=== PATIENT | female | born 1975 | race Hispanic/Latino ===

== ENCOUNTER 2018-01-06 14:16 | Emergency (ER) | payer OTHER ==
[2018-01-06] MEDS ORDERED: HYDROCODONE/ACETAMINOPHEN 10/325 MG TAB ONE (14:50)
[2018-01-06] MEDS ORDERED: KETOROLAC TROMETHAMINE 60 MG/2 ML VIAL ONE (14:50)
[2018-01-28] MEDS ORDERED: LISI40TA4 PO (11:18)
[2018-01-28] MEDS ORDERED: ACET1TAB25 PO (11:18)
[2018-01-28] MEDS ORDERED: HYDR25TA PO (11:18)
[2018-01-28] MEDS ORDERED: METF500T6 PO (11:18)
[2018-01-28] MEDS ORDERED: METO-409 PO (11:18)
[2018-01-28] MEDS ORDERED: DEXA1TAB PO (11:18)
[2018-01-28] MEDS ORDERED: CLON0.1T PO (11:18)
[2018-01-28] MEDS ORDERED: GABA-531 PO (11:18)
== END 2018-01-06 15:53 | disposition home or self-care (01) ==
LOC: EDH 14:16
DX: M54.16 Radiculopathy, lumbar region (principal); I10 Essential (primary) hypertension; E11.9 Type 2 diabetes mellitus without complications; Z72.0 Tobacco use
CPT/HCPCS: 96372; 99283; J1885

== ENCOUNTER 2025-04-12 18:36 | Inpatient (IN) | payer OTHER ==
[~2025-04-12] VITALS: Ht 165.1 cm; Wt 95.2 kg
[~2025-04-12 18:36] MED LIST: ACET-2079 PO; CLON0.1T PO; DEXA1TAB PO; GABA-531 PO; HYDR25TA PO; LISI40TA15 PO; METF-444 PO; METO-409 PO
[2025-04-12 18:57] LABS: IMMATURE GRANULOCYTE ABSOLUTE 0.07 K/uL (0-1); NUCLEATED RED BLOOD CELLS 0.0 % (0.0-0.19); PLATELET COUNT (AUTO) 421 K/uL (130-400); RED BLOOD CELL COUNT(AUTO) 4.78 MIL/uL (4.00-5.50); RED CELL DISTRIBUTION WIDTH 13.3 % (11.0-15.5); WHITE BLOOD COUNT (AUTO) 16.9 K/uL (4.8-10.8)
--- NOTE | 2025-04-12 18:58 | EKG ---
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
[2025-04-12] MEDS: 0.9%NACL 1000ML 1,000 ML IV ONE (19:09)
--- NOTE | 2025-04-12 19:12 | EKG ---
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
[2025-04-12 19:16] LABS: INR 1.0 (0.85-1.15)
[2025-04-12 19:20] LABS: GLUCOSE,RANDOM 264.0 mg/dL (70-105); SODIUM SERUM 137.0 mmol/L (136-145); UREA NITROGEN, BLOOD 15.0 mg/dL (7-18)
[2025-04-12 19:21] LABS: CREATINE KINASE, TOTAL 99.0 U/L (21-232); CREATININE 1.2 mg/dL (0.5-1.0); GLOMERULAR FILTR. RATE CALC 55.0 mL/min (>90)
--- NOTE | 2025-04-12 19:27 | ERN ---
ED Note History of Present Illness Stated Complaint: CHEST PAIN Chief Complaint: Chest Pain Time Seen by MD: 19:14 Dictation: 7:00 p.m. Patient was signed out to me by a.mWhit physician This is a 49-year-old obese female presenting to the emergency room with complaints of chest discomfort with radiation to the jaw and to the neck 40 minutes prior to the presentation. She also reported palpitations and tachycardia. She just did not feel well. No syncope, no fever chills or rigors no nausea vomitings diarrhea. No history of any KS in the past. She stated that she did have palpitations and tachycardia in the past but never to this extent where she felt bad. Temperature 98.3 pulse 190s blood pressure 79/54 respiratory rate 16 pulse oximetry 99% on room air Her chronic medical problems include diabetes mellitus, hypertension, hyperlipidemia and history of tachycardia details are unknown She also reported that she has been on GLP 1 agents for about a year initially on Mounjaro currently on Ozempic. Allergies: Coded Allergies: No Known Allergies (Unverified Allergy, Unknown, 01/28/18) Home Meds Reported Medications Metformin HCl (Metformin HCl) 500 Mg Tablet, 500 MG PO DAILY, TAB 01/28/18 Hydrochlorothiazide (Hydrochlorothiazide) 25 Mg Tablet, 25 MG PO DAILY, TAB 01/28/18 Dexamethasone (Dexamethasone) 1 Mg Tablet, 1 MG PO BID, TAB 01/28/18 Metoprolol Succinate (Metoprolol Succinate) 100 Mg Tab.er.24h, 100 MG PO DAILY, TAB 01/28/18 Clonidine HCl (Clonidine HCl) 0.1 Mg Tablet, 0.1 MG PO BID, TAB 01/28/18 Lisinopril (Lisinopril) 40 Mg Tablet, 40 MG PO DAILY, TAB 01/28/18 Acetaminophen with Codeine (Acetaminophen-Cod #3 Tablet) 1 Each Tablet, 1 EACH PO Q2IUMOW PRN for PAIN, TAB 01/28/18 Gabapentin (Gabapentin) 300 Mg Capsule, 300 MG PO BID, CAP 01/28/18 Past Medical History Past Medical History: Diabetes-Type II, High Cholesterol, Hypertension Additional Past Medical Hx: TACHYCARDIA Surgical History: Cholecystectomy, Surgical History Other: BACK SURGERY Family History: Negative Social History: Smokers (Vaping) RN Note Reviewed/Agreed w/PFSH: Yes Review of System Dictation Constitutional: Negative for fever,chills, and weight loss Eyes: Negative for injury, pain,redness, and discharge ENT: Negative for injury,pain or swelling Cardiovascular: Positive for chest pain, palpitations, and denied edema Respiratory: Negative for shortness of breath, cough, and wheezing, Abdomen/GI: Negative for abdominal pain, nausea, vomiting, diarrhea, and constipation Back: Negative for injury and pain : Negative for injury, bleeding and discharge MS/Extremity: Negative for injury and deformity Skin: Negative for rash, and discoloration Neuro: Negative for headache, weakness, numbness, tingling, and seizure Psych: Negative for suicide ideation, homicidal ideation, and hallucinations Initial Vital Sign VS Vital Signs Date Time Temp Pulse Resp B/P (MAP) Pulse Ox O2 Delivery O2 Flow Rate FiO2 04/12/25 18:37 98.2 190 16 79/54 99 Room Air 04/12/25 18:55 0 21 Physical Exam Dictation General: awake, alert, NAD obese female conversational Head/Face: Normocephalic, atraumatic Eyes: PERRL, EOMI, vision at baseline ENT: oral cavity clear, TMs clear, no signs of infection Neck: Trachea midline, supple, no nuchal rigidity Cardiovascular: Tachycardia, No MRGs, no JVD Respiratory: CTAB, no respiratory distress, No rales or wheezes Abdomen: Soft, non-tender, non-distended, normal bowel sounds, no guarding or rebound. Skin: Warm, dry, normal turgor, no rash MS/Extremity: Pulses equal, no cyanosis, neurovascular intact, FROM small lesions look like healing insect bite Neuro: COAx4, GCS 15, strength 5/5, CN 2-12 intact, normal cerebellar exam, normal gait, Psych: Normal behavior, mood, and affect normal Extremities-trace edema without any palpable cords, Homans sign is negative Results (Laboratory/Radiology) Laboratory/Radiology Laboratory Tests Test 04/12/25 18:46 04/12/25 20:02 White Blood Count 16.9 K/uL (4.8-10.8) H Red Blood Count 4.78 MIL/uL (4.00-5.50) Hemoglobin 13.9 g/dL (12.0-16.0) Hematocrit 41.4 % (36-48) Mean Corpuscular Volume 86.6 fL (79-99) Mean Corpuscular Hemoglobin 29.1 pg (27.0-33.0) Mean Corpuscular Hemoglobin Concent 33.6 g/dL (32.0-36.0) Red Cell Distribution Width 13.3 % (11.0-15.5) Platelet Count 421 K/uL (130-400) H Mean Platelet Volume 10.8 fL (7.5-10.5) H Immature Granulocyte % (Auto) 0.4 % (0-1) Neutrophils (%) (Auto) 57.9 % (40.0-77.0) Lymphocytes (%) (Auto) 34.7 % (21.0-51.0) Monocytes (%) (Auto) 6.3 % (3.0-13.0) Eosinophils (%) (Auto) 0.4 % (0.0-8.0) Basophils (%) (Auto) 0.3 % (0.0-5.0) Neutrophils # (Auto) 9.8 K/uL (1.8-7.7) H Lymphocytes # (Auto) 5.9 K/uL (1.0-4.8) H Monocytes # (Auto) 1.1 K/uL (0.1-1.0) H Eosinophils # (Auto) 0.07 K/uL (0.00-0.70) Basophils # (Auto) 0.05 K/uL (0.00-0.20) Absolute Immature Granulocyte (auto 0.07 K/uL (0-1) Nucleated Red Blood Cells 0.0 % (0.0-0.19) Prothrombin Time 10.6 SEC (9.6-11.6) Prothromb Time International Ratio 1.00 (0.85-1.15) Activated Partial Thromboplast Time 28.4 SEC (26.3-35.5) Sodium Level 137 mmol/L (136-145) Potassium Level 3.0 mmol/L (3.5-5.1) *L Chloride Level 98 mmol/L (101-111) L Carbon Dioxide Level 24 mmol/L (21-32) Blood Urea Nitrogen 15 mg/dL (7-18) Creatinine 1.2 mg/dL (0.5-1.0) H Glomerular Filtration Rate Calc 55 mL/min (>90) Random Glucose 264 mg/dL (70-105) H Total Calcium 9.2 mg/dL (8.5-10.1) Magnesium Level 1.90 mg/dL (1.80-2.40) Total Creatine Kinase 99 U/L (21-232) Troponin I High Sensitivity 8 ng/L (4-50) Thyroid Stimulating Hormone (TSH) 6.32 uIU/mL (0.36-3.74) H Free Triiodothyronine (T3) pg/mL 2.85 pg/mL (2.18-3.98) Urine Color LIGHT-YELLOW (YELLOW) Urine Appearance CLOUDY (CLEAR) H Urine pH 7.0 (5.0-8.0) Urine Specific [place] 1.007 (1.001-1.031) Urine Protein 30 mg/dL (NEGATIVE) H Urine Glucose (UA) 200 mg/dL (NEGATIVE) H Urine Ketones NEGATIVE mg/dL (NEGATIVE) Urine Occult Blood +- (TRACE) (NEGATIVE) H Urine Nitrate NEGATIVE (NEGATIVE) Urine Bilirubin NEGATIVE mg/dL (NEGATIVE) Urine Urobilinogen 0.2 mg/dL (0.2-1.0) Urine Leukocyte Esterase NEGATIVE [place]/uL Urine RBC 2-5 /HPF (0-1) H Urine WBC 6-10 /HPF (0-1) H Urine Squamous Epithelial Cells FEW /HPF (0-2) Urine Bacteria MOD /HPF (None Seen) Labs Reviewed?: Yes EKG Comment: 12 lead EKG done on 04/12/2025 at 6:40 p.m. showed a heart rate of 193, ND interval 115, QRS duration 86, QT/QTC 271/485. Impression supraventricular tachycardia with repolarization abnormalities but no acute ST-T T elevations noted. EKG rhythm strip SVT. Repeat 12 lead EKG on 04/12/2025 at 6:54 p.m. after a dose of Lopressor showed a heart rate of 165, ND interval 46, QRS 94, QT/QTC 322/534. Impression sinus tachycardia with repolarization abnormalities slightly prolonged QT nonspecific changes. EKG rhythm strip shows sinus tachycardia around 160s. Repeat 12 lead EKG done on 04/12/2025 at 7:07 p.m. showed a heart rate of 94, ND interval 207, QRS 93, QT/QTC 389/488 Impression normal sinus rhythm with slightly prolonged ND. EKGs interpreted by ER MD Dr. Orona X-RAY Comment: REASON: cp ORDERING PHYSICIAN: FREDY CHARLES MD PROCEDURE: CXR1VW - CHEST 1VW EXAM: CR Chest, 1 View. CLINICAL HISTORY: cp COMPARISON: None provided. FINDINGS: LUNGS: There is no mass, infiltrate, or acute pulmonary abnormality. PLEURAL SPACES: No evidence of pleural effusion or pneumothorax. MEDIASTINUM: The cardiomediastinal silhouette is within normal limits. BONES: No aggressive appearing osseous lesion seen. IMPRESSION: No acute cardiopulmonary pathology is evident. /[place] DICTATED BY: OLIVA PALOMARES Jr., MD DATE: 04/12/252099 ELECTRONICALLY SIGNED BY: OLIVA PALOMARES Jr., MD DATE: 04/12/252099 ED Course ED Course Orders Procedure Category Date Status Time Cbc With Differential LAB 04/12/25 In Process 18:39 Prothrombin Time With LAB 04/12/25 Complete INR 18:39 Chest 1vw RAD 04/12/25 Resulted 18:39 12 Lead Ekg Tracing- EKG 04/12/25 Complete Technical 18:39 0.9%Nacl 1000ml (Ns PHA 04/12/25 Complete 1000ml) 19:00 Magnesium LAB 04/12/25 Complete 18:39 Creatine Kinase, Total LAB 04/12/25 Complete 18:39 Troponin I High LAB 04/12/25 Complete Sensitivity 18:39 Urinalysis Profile LAB 04/12/25 Complete 18:39 Partial LAB 04/12/25 Complete Thromboplastin Time 18:39 Basic Metabolic Panel LAB 04/12/25 Complete 18:39 Metoprolol Tartrate PHA 04/12/25 Complete (Lopressor) 19:00 Metoprolol Tartrate PHA 04/12/25 Complete (Lopressor) 18:47 Metoprolol Tartrate PHA 04/12/25 Complete (Lopressor) 19:00 Metoprolol Tartrate PHA 04/12/25 Complete (Lopressor) 18:51 Thyroid Stimulating LAB 04/12/25 Complete Hormone 19:00 Free T3 LAB 04/12/25 Complete 19:00 12 Lead Ekg Tracing- EKG 04/12/25 Complete Technical 18:59 Diltiazem 25mg Inj PHA 04/12/25 Complete (Cardizem 25mg Inj) 19:08 Diltiazem 25mg Inj PHA 04/12/25 Complete (Cardizem 25mg Inj) 19:10 12 Lead Ekg Tracing- EKG 04/12/25 Logged Technical 19:34 Potassium Bicarb/Cit PHA 04/12/25 Complete Ac 25meq (K-Lyte Ta 20:30 Magnesium 2gm Premix PHA 04/12/25 In Process 50ml (Magnesium 2gm 20:30 Culture Urine HEATH 04/12/25 In Process 20:20 Current Medications Medications (Trade) Dose Ordered Sig/Sherlyn Route PRN Reason Start Time Stop Time Status Last Admin Dose Admin Diltiazem HCl (CARDIzem 25MG INJ) 10 mg ONCE ONCE IVP 04/12/25 19:10 04/12/25 19:16 DC 04/12/25 19:38 Diltiazem HCl (CARDIzem 25MG INJ) 25 mg STK-MED ONCE IVP 04/12/25 19:08 04/12/25 19:08 DC Magnesium Sulfate 50 ml @ 0 mls/hr PROTOCOL IV 04/12/25 20:30 05/12/25 20:29 04/12/25 20:20 Metoprolol Tartrate (loprESSOR) 5 mg ONCE ONCE IV 04/12/25 19:00 04/12/25 18:54 DC Metoprolol Tartrate (loprESSOR) 5 mg ONCE ONCE IV 04/12/25 19:00 04/12/25 19:01 DC Metoprolol Tartrate (loprESSOR) 5 mg STK-MED ONCE IV 04/12/25 18:47 04/12/25 18:47 DC Metoprolol Tartrate (loprESSOR) 5 mg STK-MED ONCE IV 04/12/25 18:51 04/12/25 18:52 DC Potassium Bicarbonate (K-Lyte Tablet Eff 25 Meq Tablet.eff) 50 meq ONCE ONCE PO 04/12/25 20:30 04/12/25 20:31 DC 04/12/25 20:21 Sodium Chloride 1,000 ml @ 0 mls/hr ONCE ONCE IV 04/12/25 19:00 04/12/25 19:01 DC 04/12/25 19:09 Vital Signs Date Time Temp Pulse Resp B/P (MAP) Pulse Ox O2 Delivery O2 Flow Rate FiO2 04/12/25 20:01 98.1 95 20 99/65 96 Nasal Cannula* 2 28 04/12/25 19:38 166 78/69 04/12/25 19:21 91 16 90/60 100 Nasal Cannula* 2 28 04/12/25 19:19 99.0 192 20 124/89 97 Nasal Cannula* 2 28 04/12/25 19:12 99 92/51 04/12/25 19:06 98.2 166 20 76/32 99 Nasal Cannula* 2 28 04/12/25 18:55 98.6 192 20 124/89 97 Room Air* 0 21 04/12/25 18:37 98.2 190 16 79/54 99 Room Air We will perform diagnostic labs, advanced imaging and administer medications according to the patient's complaint. Once the results are available, will review and personally interpreted the labs to rule out any acute life- threatening emergency the trach require immediate intervention and treatment. I will then re-evaluate the patient after treatment and diagnostic exams have return to determine whether the patient requires any further testing, can safely be discharged home or need further admission to hospital for additional treatment and evaluation. 9:00 p.m. patient accepted by for admission and further management HEART Score Response (Comments) Value History: Moderate suspicion (+1) 1 EKG: Repolarization changes 1 Age: 45-65yrs (+1) 1 Risk Factors: 3+ risk factors (+2) 2 Initial Troponin: Normal limit (0) 0 HEART Score Risk: Mod Risk for MACE (4-6) Total 5 Medical Decision Making MDM Differential diagnosis: Unstable angina, cardiac dysrhythmias, sinus tachycardia, thyroid storm, accessory pathways This is a 49-year-old obese female presenting to the emergency room with complaints of chest discomfort with radiation to the jaw and to the neck 40 minutes prior to the presentation. She also reported palpitations and tachy cardia. She just did not feel well. No syncope, no fever chills or rigors no nausea vomitings diarrhea. No history of any KS in the past. She stated that she did have palpitations and tachycardia in the past but never to this extent where she felt bad. Temperature 98.3 pulse 190s blood pressure 79/54 respiratory rate 16 pulse oximetry 99% on room air Her chronic medical problems include diabetes mellitus, hypertension, hyperlipidemia and history of tachycardia details are unknown She also reported that she has been on GLP 1 agents for about a year initially on Mounjaro currently on Ozempic. 7:31 p.m. labs reviewed CBC showed a white count of 16.9 hemoglobin 13.9. 8:45 p.m. TSH 6.3, troponins are negative. BNP 7 showed a potassium of 3 BUN and creatinine are 15 and 1.2 with a glucose of 264 Chest x-ray unremarkable for any acute infiltrate or pulmonary edema Patient responded very well to Cardizem 10 mg bolus with a heart rates of 80s blood pressure in the 90 systolic. I recommended admission to the hospital. Patient and spouse are agreeable 9:00 p.m. patient accepted by covering for Dr. herman for admission and further management. Rationale: Tests considered and ordered secondary to shared decision making include: labs, ECG and radiology Previous outside records reviewed: Old ER visits. Risk of complication and/or morbidity or mortality of patient management: None Medications-Per medication reconciliation Need for hospitalization: Patient does meet criteria for hospitalization. Need for emergency major/minor surgery: No There are no social concerns with this patient. Prescription drug management Prescriptions will include symptomatic care Patient's prior external medical records from other ER visits were reviewed by me as indicated. Prior testing and results from previous visits were reviewed. Prior tests were taken into account with medical decision making and resource utilization, independent historian/historians were used to obtain complete medical history. I independently interpreted the test that were performed, results were reviewed by me and considered findings on radiology if ordered. Medical management and examination interpretation discussions were had by me with other qualified healthcare professionals as indicated for the patient's care. Critical Care Note Critical Time: 45 minutes Comment(s) Life-threatening illness; supraventricular tachycardia, hypotension, chest pain Risk of morbidity mortality-high Complexity of medical decision making-high (X) high probability of sudden clinically significant deterioration in the p atient's condition required the highest level of my preparedness to intervene urgently. I provided critical care services requiring my direct and personal management as noted below; (x) chart data review (x) reviewing nurse's notes and/charts (x) documentation time (x) consultation collaboration on findings and therapy options (x) medication orders and management (x) re-evaluations (x) care, transfer of care, and discharge plans (x) ordering and interpreting studies (x) ordering and reviewing labs (x) obtaining necessary history from family, EMS, senior care, private MD, surrogate decision makers because patient was unable to give history due to limitations in the mental status (x) aggregate critical care time was ( 45 ) minutes. This includes only time during which I was engaged in work directly related to the patient's care as described above whether at the bedside or elsewhere in the ER while the patient was critical. My time did not include minutes spent treating any other patients simultaneously or on activities that did not directly contribute to the patient's treatment. It did not include time spent performing other reported procedures or services of residents if any. Belgica Orona MDFCCP DX & DISP Disposition: Inpatient Decision to Admit Time: 19:24 Departure Impression: Primary Impression: Supraventricular tachycardia Additional Impressions: Chest pain, Hypokalemia, Hypomagnesemia, Diabetes mellitus with hyperglycemia, Hypotension, Elevated TSH Condition: Stable Additional Instructions: Patient was informed of all the diagnostic labs and procedures conducted in the emergency room today and demonstrated understanding of the results. I personally reviewed and interpreted all the diagnostic exams performed in the ER today. The patient will be admitted to the hospital for further treatment and evaluation. Disposition-admit to facility Condition-stable/guarded Course-uncertain at this time Pain status-decreased Assessment-exam unchanged Admission Certification- I certify that the patients status is appropriate and is based on my best clinical judgment and the patient's condition as documented in the medical records Referrals: MONICO HERMAN MD (PCP) BELGICA ORONA MD Apr 12, 2025 19:27
--- NOTE | 2025-04-12 20:00 | HMCIMG ---
EXAM: CR Chest, 1 View. CLINICAL HISTORY: cp COMPARISON: None provided. FINDINGS: LUNGS: There is no mass, infiltrate, or acute pulmonary abnormality. PLEURAL SPACES: No evidence of pleural effusion or pneumothorax. MEDIASTINUM: The cardiomediastinal silhouette is within normal limits. BONES: No aggressive appearing osseous lesion seen. IMPRESSION: No acute cardiopulmonary pathology is evident. /[place]
[2025-04-12 20:16] LABS: APPEARANCE,URINE CLOUDY (CLEAR); GLUCOSE, URINE (UA) 200 mg/dL (NEGATIVE); LEUKOCYTE ESTERASE ,URINE NEGATIVE Leu/uL (NEGATIVE); NITRATE,URINE NEGATIVE (NEGATIVE); OCCULT BLOOD,URINE +- (TRACE) (NEGATIVE)
[2025-04-12 20:18] LABS: ADD UA MICROSCOPIC YES
[2025-04-12 20:20] LABS: SQUAMOUS EPITHELIAL CELL,UR FEW /HPF (0-2)
[2025-04-12] MEDS: MAGNESIUM 2GM PREMIX 50ML 50 ML IV SCH (20:20)
--- NOTE | 2025-04-12 22:12 | NUR ---
CRITICAL LAB VALUE GIVEN TO PRIMARY NURSE GABRIELA STEWARD. TROPONIN - 724
--- NOTE | 2025-04-12 22:26 | EKG ---
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
[2025-04-12] MEDS ORDERED: AMLO-257 PO (22:44)
[2025-04-12] MEDS ORDERED: ROSU5TAB51 PO (22:44)
[2025-04-12] MEDS ORDERED: OLME40TA18 PO (22:44)
[2025-04-12] MEDS ORDERED: SEMA2PEN SQ (22:44)
[2025-04-12] MEDS ORDERED: PIOG15TA66 PO (22:44)
[2025-04-12] MEDS ORDERED: FLUO-341 PO (22:44)
[2025-04-12] MEDS ORDERED: HYDR12.54 PO (22:44)
[2025-04-12] MEDS ORDERED: CLON0.1T PO (22:44)
[2025-04-12] MEDS ORDERED: METO-409 PO (22:44)
--- NOTE | 2025-04-13 04:18 | EKG ---
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
[2025-04-13 05:32] LABS: IMMATURE GRANULOCYTE ABSOLUTE 0.05 K/uL (0-1); NUCLEATED RED BLOOD CELLS 0.0 % (0.0-0.19); PLATELET COUNT (AUTO) 303 K/uL (130-400); RED BLOOD CELL COUNT(AUTO) 3.94 MIL/uL (4.00-5.50); RED CELL DISTRIBUTION WIDTH 13.5 % (11.0-15.5); WHITE BLOOD COUNT (AUTO) 13.4 K/uL (4.8-10.8)
[2025-04-13 05:49] LABS: INR 1.08 (0.85-1.15)
[2025-04-13 06:00] LABS: CREATININE 0.7 mg/dL (0.5-1.0); GLOMERULAR FILTR. RATE CALC 106.0 mL/min (>90); GLUCOSE,RANDOM 131.0 mg/dL (70-105); LDL DIRECT 97.0 mg/dL (0-99); SODIUM SERUM 141.0 mmol/L (136-145); UREA NITROGEN, BLOOD 12.0 mg/dL (7-18)
--- NOTE | 2025-04-13 06:12 | NUR ---
PTT OF 114.9 RESULTED AT THIS TIME, HEPARIN DRIP ON HOLD PER PROTOCOL FOR 60 MINUTES.
[2025-04-13] MEDS ORDERED: PoTASSium chl 10% ELIXIR 20MEQ 20 MEQ/15 ML UDCUP PO PRN (06:30)
--- NOTE | 2025-04-13 06:53 | NUR ---
DR. OSBORNE MADE AWARE OF CARDIOLOGY CONSULT AND LABS, TROPONIN LEVELS
[2025-04-13] MEDS: ASPIRIN 81 MG EC TAB PO SCH (06:58)
[2025-04-13] MEDS: ASPIRIN 81 MG EC TAB ONE (07:01)
--- NOTE | 2025-04-13 07:02 | NUR ---
DR. OSBORNE AT BEDSIDE AT [facility]
--- NOTE | 2025-04-13 07:31 | CONS ---
Cardiology consultation Date of service: April 13, 2025 Reason for consult: Evaluation of elevated troponin Referring MD: Dr. Ann History of present illness 49-year-old female with no prior coronary artery disease but with diabetes hypertension dyslipidemia obesity and smoking. She was doing well until yesterday when she was under a lot of stress from work started experiencing palpitations lightheadedness And chest pains as well as 1 episode of vomiting. She was brought in by family members at the emergency room and an EKG done showed narrow complex tachycardia at 190 beats per minute Highly suggestive of AV jair reentrant tachycardia. IV metoprolol was given with no response. After IV Cardizem was given, She converted back to sinus rhythm. Post conversion EKG done showed sinus rhythm, no ST deviations or Q-waves, normal intervals no delta waves Cardiac troponin was elevated peak 2332. She was given aspirin and started on IV heparin. Past Medical History Past Medical History: Diabetes-Type II, High Cholesterol, Hypertension, Prior history of tachycardia with emergency room visits last 3 years ago unknown details Surgical History: Cholecystectomy, x3, back surgery Family History: Multiple family members having myocardial infarction less than 55 years old Social History: Smokers (Vaping) Review of System Dictation Constitutional: Negative for fever,chills, and weight loss Eyes: Negative for injury, pain,redness, and discharge ENT: Negative for injury,pain or swelling Cardiovascular: Positive for chest pain, palpitations, and denied edema Respiratory: Negative for shortness of breath, cough, and wheezing, Abdomen/GI: Negative for abdominal pain, nausea, + vomiting, no diarrhea, and constipation Back: Negative for injury and pain : Positive for dysuria and foul-smelling urine MS/Extremity: Negative for injury and deformity Skin: Negative for rash, and discoloration Neuro: Negative for headache, weakness, numbness, tingling, and seizure Psych: Negative for suicide ideation, homicidal ideation, and hallucinations Physical examination Overweight female in no acute distress [place] palpebral conjunctivae anicteric sclerae Supple neck no JVD no bruit Symmetrical chest expansion no retractions clear breath sounds Regular rate and rhythm normal S1 and S2 2/6 mitral regurgitation murmur Abdomen soft nontender no hepatosplenomegaly Extremities: Trace pedal edema mildly diminished distal pulses bilaterally Skin: No rashes Neuro exam: Awake alert oriented x3, no motor or sensory deficits Impression: 49-year-old known diabetes hypertension dyslipidemia and vaping with a strong family history Of early myocardial infarction with likely underlying obstructive coronary artery disease who was under a lot of stress yesterday And developed supraventricular tachycardia causing chest pains and palpitations with marked elevated troponin Most likely type 2 NV with high WBC most likely related to a urinary tract infection Diagnosis: 1. Symptomatic paroxysmal supraventricular tachycardia converted with IV Cardizem 2. Type [address]-elevation myocardial infarction 3. Suspected obstructive coronary artery disease 4. Strong family history of early myocardial infarction 5. Diabetes, A1c 6.5 6. Chronic hypertension 7. Dyslipidemia 8. Hypokalemia admission 2.8 Recommendations: Regarding the supraventricular tachycardia, continue oral metoprolol 25 mg p.o. b.i.d. and monitor for any recurrence After correction of hypokalemia and treatment of urinary tract infection. Future plans to consider sotalol And EP study for radiofrequency ablation. Regarding type [address]-elevation myocardial infarction in this patient with likely obstructive coronary artery disease with a strong family history of Early myocardial infarction, I recommended the patient to undergo cardiac catheterization and possible revascularization Once electrolyte deficiencies are corrected and the urinary tract infection treated. Give 300 mg of oral clopidogrel then 75 mg daily starting tomorrow. Risks of cardiac catheterization explained to the patient and family which are but not limited to: NV stroke bleeding or vascular complications. Regarding hypokalemia, keep potassium more than 4 and magnesium more than 2. Plan to sent for aldosterone and renin. Future plans to consider spironolactone. Patient History: Carcinomas MOTHER Diabetes mellitus MOTHER FATHER Hypertension FATHER Vitals/Labs Vital Signs Date Time Temp Pulse Resp B/P (MAP) Pulse Ox O2 Delivery O2 Flow Rate FiO2 04/13/25 06:32 71 18 128/83 97 Room Air* 0 21 04/12/25 20:01 98.1 Laboratory Tests 04/12/25 18:46 04/13/25 04:45 Microbiology Date/Time Source Procedure Growth Status 04/12/25 20:02 Urine,Clean Catch - Final Complete Allergies: Coded Allergies: No Known Allergies (Unverified Allergy, Unknown, 01/28/18) MIKAELA OSBORNE MD Apr 13, 2025 07:31
--- NOTE | 2025-04-13 08:39 | EKG ---
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
--- NOTE | 2025-04-13 10:22 | EKG ---
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
[2025-04-13] MEDS: PoTASSium chloRIDE 20MEQ ER 20 MEQ ERTAB PO PRN (11:49)
[2025-04-13 11:52] LABS: INR 1.90 (0.85-1.15)
--- NOTE | 2025-04-13 12:17 | NUR ---
REPORT GIVEN TO NURSE ANNE ROOM 220
--- NOTE | 2025-04-13 12:22 | NUR ---
DR WING ENDOCRINOLOGY CONSULT COMPLTED.
--- NOTE | 2025-04-13 12:25 | NUR ---
ER ADMIT: RECEIVED PATIENT FROM ER VIA STRETCHER. CURRENTLY DENIES CHEST PAIN . HEPARIN DRIP AT 15UNITS/KG/HR. TELEMETRY SR HR 75.
--- NOTE | 2025-04-13 12:28 | NUR ---
CRITICAL LAB: PTT >139
[2025-04-13 12:40] VITALS: BP 122/77; PULSE 75; RESP 20; TEMP 98.1
--- NOTE | 2025-04-13 12:45 | NUR ---
HEPARIN DRIP OFF X 1 HOUR AND WILL DECREASE TO 13UNITS/KG/HR. NEXT PTT AT 7PM.
[2025-04-13 13:00] VITALS: O2SAT 96
--- NOTE | 2025-04-13 15:29 | NUR ---
DCP:HOME Pt currently lives with her Jonnathan Collins [phone], adult son, and dgt in law. Pt does not have any DME, home health, or provider services. Pt states that she is able to complete ADLs independently. PCP is Dr. Goldberg and uses [facility] (short term) or [facility] (long term care pharmacist) for any RX needs. At CT pt will want to go home and family can assist with transportation. Addendum: 04/13/25 at 1531 by LUIS BOWLING SS Amended: Links added.
[2025-04-13 16:00] VITALS: BP 116/74; PULSE 70; RESP 18; TEMP 98.1
--- NOTE | 2025-04-13 16:22 | CONS ---
CONSULT NOTE: Endocrinology consultation chief complaint:chest pain and elevated troponin reason for consult: hypothyroidism Date of service: April 13, 2025 Reason for consult: Evaluation of elevated troponin History of present illness 49-year-old female with history of diabetes hypertension dyslipidemia obesity and smoking presented with experiencing palpitations lightheadedness And chest pain. She was brought in by family members at the emergency room and an EKG done showed narrow complex tachycardia at 190 beats per minute patient is on heparin drip and cardiac cath pending. troponin was high. Cardiac troponin was elevated peak 2332. She was given aspirin and started on IV heparin. TSH 6.3, T 4 Free 1.07 and T 3 Free 2.85, HBA1C 6.5% denies taking any levothyroxine meds. glucose are improving and on SSI. home regimen: pioglitazone 15 mg daily and ozempic 2 mg weekly. Past Medical History Past Medical History: Diabetes-Type II, High Cholesterol, Hypertension, Prior history of tachycardia with emergency room visits last 3 years ago unknown details Surgical History: Cholecystectomy, x3, back surgery Family History: Multiple family members having myocardial infarction less than 55 years old Social History: Smokers (Vaping) Patient History: Carcinomas MOTHER Diabetes mellitus MOTHER FATHER Hypertension FATHER Review of System Dictation Constitutional: Negative for fever,chills, and weight loss Eyes: Negative for injury, pain,redness, and discharge ENT: Negative for injury,pain or swelling Cardiovascular: Positive for chest pain, palpitations, and denied edema Respiratory: Negative for shortness of breath, cough, and wheezing, Abdomen/GI: Negative for abdominal pain, nausea, + vomiting, no diarrhea, and constipation Back: Negative for injury and pain : Positive for dysuria and foul-smelling urine MS/Extremity: Negative for injury and deformity Skin: Negative for rash, and discoloration Neuro: Negative for headache, weakness, numbness, tingling, and seizure Psych: Negative for suicide ideation, homicidal ideation, and hallucinations Physical examination Overweight female in no acute distress [place] palpebral conjunctivae anicteric sclerae Supple neck no JVD no bruit Symmetrical chest expansion no retractions clear breath sounds Regular rate and rhythm normal S1 and S2 2/6 mitral regurgitation murmur Abdomen soft nontender no hepatosplenomegaly Extremities: Trace pedal edema mildly diminished distal pulses bilaterally Skin: No rashes Neuro exam: Awake alert oriented x3, no motor or sensory deficits assessment: 1. subclinical hypothyroidism TSH 6.3, T 4 Free 1.07 and T 3 Free 2.85, denies taking any levothyroxine meds. 2. Symptomatic paroxysmal supraventricular tachycardia converted with IV Cardizem 3. Type [address]-elevation myocardial infarction HBA1C 6.5%, home regimen: pioglitazone 15 mg daily and ozempic 2 mg weekly. glucose are improving and on SSI. 4. Suspected obstructive coronary artery disease 5. hypertension 6. Dyslipidemia Recommendations: repeat thyroid labs in 1 month. if persistent high TSH, then will start low dose levothyroxine. educated on hypothyroidism. continue medium dose ssi. monitor glucose qx6 hourly. thanks for allowing me to participate in patient care and will continue to follow up. Vital Signs 04/13/25 04/13/25 12:40 13:00 Temp 98.1 Pulse 75 Resp 20 B/P (MAP) 122/77 Pulse Ox 96 O2 Delivery Room Air* O2 Flow Rate 0 FiO2 21 Hematology Labs: Test 04/13/25 04:45 Range/Units White Blood Count 13.4 H 4.8-10.8 K/uL Red Blood Count 3.94 L 4.00-5.50 MIL/uL Hemoglobin 11.6 L 12.0-16.0 g/dL Hematocrit 34.9 L 36-48 % Mean Corpuscular Volume 88.6 79-99 fL Mean Corpuscular Hemoglobin 29.4 27.0-33.0 pg Mean Corpuscular Hemoglobin Concent 33.2 32.0-36.0 g/dL Red Cell Distribution Width 13.5 11.0-15.5 % Platelet Count 303 # 130-400 K/uL Mean Platelet Volume 10.8 H 7.5-10.5 fL Immature Granulocyte % (Auto) 0.4 0-1 % Neutrophils (%) (Auto) 63.1 40.0-77.0 % Lymphocytes (%) (Auto) 28.9 21.0-51.0 % Monocytes (%) (Auto) 6.6 3.0-13.0 % Eosinophils (%) (Auto) 0.7 0.0-8.0 % Basophils (%) (Auto) 0.3 0.0-5.0 % Neutrophils # (Auto) 8.5 H 1.8-7.7 K/uL Lymphocytes # (Auto) 3.9 1.0-4.8 K/uL Monocytes # (Auto) 0.9 0.1-1.0 K/uL Eosinophils # (Auto) 0.09 0.00-0.70 K/uL Basophils # (Auto) 0.04 0.00-0.20 K/uL Absolute Immature Granulocyte (auto 0.05 0-1 K/uL Nucleated Red Blood Cells 0.0 0.0-0.19 % Chemistry Labs: Test 04/13/25 15:57 04/13/25 13:25 04/13/25 04:45 04/12/25 18:46 Range/Units Whole Blood Glucose 139 H 70-110 MG/DL Bedside Glucose Comment Notified Nurse Troponin I High Sensitivity 1156 *H 4-50 ng/L Sodium Level 141 136-145 mmol/L Potassium Level 2.8 *L 3.5-5.1 mmol/L Chloride Level 104 101-111 mmol/L Carbon Dioxide Level 31 21-32 mmol/L Blood Urea Nitrogen 12 7-18 mg/dL Creatinine 0.7 0.5-1.0 mg/dL Glomerular Filtration Rate Calc 106 >90 mL/min Random Glucose 131 #H 70-105 mg/dL Total Calcium 8.4 L 8.5-10.1 mg/dL Magnesium Level 2.00 1.80-2.40 mg/dL Triglycerides Level 84 30-200 mg/dL Cholesterol Level 162 <200 mg/dL LDL Cholesterol 97 0-99 mg/dL HDL Cholesterol 47 35-85 mg/dL Hemoglobin A1c 6.5 H 4.0-6.0 % Estimated Average Glucose (eAG) 140 H 70-126 mg/dL Total Creatine Kinase 99 21-232 U/L Thyroid Stimulating Hormone (TSH) 6.32 H 0.36-3.74 uIU/mL Free Thyroxine (T4) Direct 1.07 0.76-1.46 ng/dL Free Triiodothyronine (T3) pg/mL 2.85 2.18-3.98 pg/mL Coagulation Labs: Test 04/13/25 10:39 Range/Units Prothrombin Time 18.9 #H 9.6-11.6 SEC Prothromb Time International Ratio 1.90 H 0.85-1.15 Activated Partial Thromboplast Time > 139.0 *H 26.3-35.5 SEC Current Medications Medications (Trade) Dose Ordered Sig/Sherlyn Route Start Time Stop Time Status Last Admin Dose Admin Aspirin (Aspirin 81mg Ec Tab) 81 mg DAILY PO 04/13/25 09:00 05/13/25 08:59 04/13/25 06:58 81 MG Clopidogrel Bisulfate (plaVIX 75MG) 75 mg DAILY PO 04/13/25 07:00 05/13/25 06:59 04/13/25 08:51 75 MG Heparin Sodium/ Dextrose 250 ml @ 0 mls/hr Q6H IV 04/12/25 23:30 05/12/25 23:29 04/12/25 23:24 15.06 MLS/HR Insulin Human Lispro (HumaLOG LISpro 100 UNIT/ML 3ML) INSULIN SLIDING SCAL... ACHS SQ 04/13/25 07:30 05/13/25 07:29 Magnesium Sulfate 50 ml @ 0 mls/hr PROTOCOL IV 04/12/25 20:30 05/12/25 20:29 04/12/25 20:20 25 MLS/HR Metoprolol Tartrate (loprESSOR) 25 mg BID PO 04/13/25 09:00 05/13/25 08:59 04/13/25 08:40 25 MG ZOE WING MD Apr 13, 2025 16:22
[2025-04-13 19:53] VITALS: BP 127/79; PULSE 76; RESP 20; TEMP 98.1
[2025-04-13 20:00] VITALS: O2SAT 96
[2025-04-13 23:41] VITALS: BP 126/82; PULSE 78; RESP 20; TEMP 98.2
[2025-04-14] VITALS (8 sets, daily range): BP systolic 119–157; BP diastolic 70–97; PULSE 67–76; RESP 18–20; TEMP 97.9–98.7; O2SAT 96–97
--- NOTE | 2025-04-14 03:57 | HP ---
DATE OF SERVICE: 04/12/2025 PRESENTING COMPLAINT: Chest pain and palpitations. HISTORY OF PRESENT ILLNESS: A 49-year-old female with history of hypertension, diabetes mellitus, dyslipidemia, obesity, and nicotine use, who presented to the hospital with chest pain, shortness of breath. Symptoms started today after having her dinner with family member. The patient in the ER was found with SVT with a heart rate of 190. The patient was given IV metoprolol and Cardizem, which have controlled the rate. The patient complained of chest pain localized to the sternal area, which is pressure-like, nonradiating. No shortness of breath. No palpitation or orthopnea. Initial troponin was 124, later increased to 2332. EKG shows SVT with non-STEMI. The patient has extensive family history of coronary artery disease with grandfather at age 35 of cardiac arrest and father also had cardiac arrest at the age of 50. PAST MEDICAL HISTORY: 1. Diabetes mellitus. 2. Hypertension. 3. Dyslipidemia. 4. Obesity. 5. Chronic tobacco use, but now vaping. PAST SURGICAL HISTORY: 1. Cholecystectomy. 2. section. 3. Back surgery. ALLERGIES: No known drug allergy. HOME MEDICATIONS: To be reviewed. SOCIAL HISTORY: . Lives with her . The patient denies alcohol or illicit drug use. The patient quit tobacco use, but now vapes nicotine product. FAMILY HISTORY: Positive for diabetes mellitus, , coronary artery disease. REVIEW OF SYSTEMS: Greater than 10 systems were reviewed, negative except as documented above. PHYSICAL EXAMINATION: GENERAL: Young female, awake. VITAL SIGNS: Temperature 98.7, pulse 85, respiratory rate 20. EYES: No icterus. Pupils equal and reactive. HENT: No oral thrush. Moist oral mucosa. NECK: Supple. No JVD or thyromegaly. LUNGS: Good air entry. No rales. No rhonchi. CARDIOVASCULAR: S1 and S2. Regular. No murmur heard. ABDOMEN: Obese, soft, nontender. Bowel sound is present. CENTRAL NERVOUS SYSTEM: Awake, alert and oriented x3. No focal deficits. SKIN: No rashes. LYMPHATIC: No peripheral lymphadenopathy. BACK: No deformity. No pressure ulcer. MUSCULOSKELETAL: No joint swelling, erythema or tenderness. LABORATORY DATA: Troponin 2332. Sodium 137, potassium 3.0, BUN 15, creatinine 1.2. WBC 16.9, hemoglobin 13.9, platelets 421. Urinalysis; wbc 10, leukocytes negative. RADIOLOGIC DATA: Chest x-ray unremarkable. ASSESSMENT: A 49-year-old female presented with chest pain and palpitation. CURRENT PROBLEMS: 1. NSTEMI. 2. SVT. 3. Diabetes mellitus. 4. UTI. 5. Obesity. 6. Hypertension. 7. Chronic nicotine use. PLAN: 1. Admit the patient to . 2. Start the patient on heparin drip protocol. 3. Cardiology evaluation. 4. Troponin will be trended. 5. Start the patient on aspirin. 6. Continue on Lipitor. 7. Vitamins as appropriate. 8. Zofran as needed for nausea and vomiting. 9. ADA diet. 10. Insulin sliding scale. TID: [id number] RECEIPT: [id number]
[2025-04-14 04:33] LABS: NUCLEATED RED BLOOD CELLS 0.0 % (0.0-0.19); PLATELET COUNT (AUTO) 292.0 K/uL (130-400); RED BLOOD CELL COUNT(AUTO) 4.08 MIL/uL (4.00-5.50); RED CELL DISTRIBUTION WIDTH 13.7 % (11.0-15.5); WHITE BLOOD COUNT (AUTO) 10.3 K/uL (4.8-10.8)
[2025-04-14 04:44] LABS: CREATININE 0.4 mg/dL (0.5-1.0); GLOMERULAR FILTR. RATE CALC 121.0 mL/min (>90); GLUCOSE,RANDOM 112.0 mg/dL (70-105); SODIUM SERUM 139.0 mmol/L (136-145); UREA NITROGEN, BLOOD 9.0 mg/dL (7-18)
--- NOTE | 2025-04-14 07:44 | HMCSR ---
APPROVED REPORT EXAM: Two-dimensional and M-mode echocardiogram with Doppler and color Doppler. INDICATION ICD: Elevated troponin 2D Dimensions RVDd4.0 cmLVEF(%)58.7 (>50%)LVED Vol(simp.)113.0 mL IVSd0.9 (0.7-1.1cm)FS(%)31 %LVES Vol(simp.)44.0 mL LVDd4.8 (3.8-5.6cm)LA (2D)4.4 (1.6-4.0cm)LVEF(%, simp.)61 % PWd0.8 (0.7-1.1cm)Ao Root(2D)2.9 (2.0-3.7cm)LA ESV INDEX (BP)29.72 mL/m2 IVSs1.0 cmLVOT diam2.3 (1.8-2.4cm) LVDs3.3 (2.5-4.0cm)IVC diam1.0 cm PWs1.4 cm Deformation Strain Apical 4-18.0 % Apical 2-16.7 % Apical 3-16.9 % Global Strain-17.2 % M-Mode Dimensions EPSS0.4 cm LA (MM)4.3 (1.6-4.0cm) Ao Root(MM)2.9 (2.0-3.7cm) Aortic Valve AoV Vmax1.2 m/[place] Peak GR5.9 mmHgLVOT Vmax0.9 m/s AoV VTI0.2 mAo Mean GR3.4 mmHgLVOT VTI0.20 m JUDD (VMAX)2.97 cm2AVA (VTI) 3.4 cm2 Mitral Valve MV E Vmax90.7 cm/sDECEL Dbiv940 ms MV A Vmax32.0 cm/sP 1/2 T51 ms E/A ratio2.8MVA (PHT)4.3 cm2 TDI E/E' Cbvpvl16.6E/E' Lateral8.8 Medial E' Peak V6.66 cm/sLateral E' Peak V10.33 cm/s Pulmonary Valve PV Vmax0.6 m/sPV VTI0.15 mPV Mean GR1.1 mmHg PV Peak GR1.7 mmHg Tricuspid Valve TR Vmax1.6 m/sRAP (EST) 3 rdQbBLIV74.5 mmHg TR Peak GR10.5 mmHg Left Ventricle The left ventricle is normal size. GLS -17.0% There is normal left ventricular wall thickness. LVEF i s 60-65%. 3D volume EF 60% The left ventricular diastolic function is normal. Right Ventricle The right ventricle is normal size. The right ventricular systolic function is normal. Atria The left atrium size is normal. The right atrium size is normal. Aortic Valve The aortic valve is normal in structure. No aortic regurgitation is present. There is no aortic valvu lar stenosis. Mitral Valve The mitral valve is normal in structure. There is trace of mitral valve regurgitation noted. There is no mitral valve stenosis. Tricuspid Valve The tricuspid valve is normal in structure. There is no tricuspid valve regurgitation noted. Pulmonic Valve The pulmonary valve is normal in structure. There is no pulmonic valvular regurgitation. Great Vessels The aortic root is normal in size. The IVC is normal in size and collapses >50% with inspiration. Pericardium There is no pericardial effusion. Other Information Quality : Adequate Conclusion Normal LV EF NO valve abnormalities
--- NOTE | 2025-04-14 08:03 | PN ---
Cardiology follow-up Date of service: April 14, 2025 Interval History of present illness 49-year-old female with no prior coronary artery disease but with diabetes hypertension dyslipidemia obesity and smoking. She was admitted because of symptomatic paroxysmal supraventricular tachycardia converted to sinus rhythm with intravenous Cardizem Incidentally found to have type non STEMI with markedly elevated troponin of more than 2000. Echocardiogram done showed normal LV ejection fraction and wall motion with grade diastolic dysfunction. She was started on IV heparin aspirin clopidogrel metoprolol and atorvastatin. She was chest pain-free overnight. No recurrent dysrhythmias seen on telemetry This morning the patient's potassium level is 3.6 in the magnesium level is still low at 1.7 Physical examination Overweight female in no acute distress [place] palpebral conjunctivae anicteric sclerae Supple neck no JVD no bruit Symmetrical chest expansion no retractions clear breath sounds Regular rate and rhythm normal S1 and S2 2/6 mitral regurgitation murmur Abdomen soft nontender no hepatosplenomegaly Extremities: Trace pedal edema mildly diminished distal pulses bilaterally Skin: No rashes Neuro exam: Awake alert oriented x3, no motor or sensory deficits Diagnosis: 1. Symptomatic paroxysmal supraventricular tachycardia converted with IV Cardizem 2. Type [address]-elevation myocardial infarction 3. Suspected obstructive coronary artery disease 4. Strong family history of early myocardial infarction 5. Diabetes, A1c 6.5 6. Chronic hypertension 7. Dyslipidemia 8. Hypokalemia admission 2.8 Recommendations: Regarding the supraventricular tachycardia, continue oral metoprolol 25 mg p.o. b.i.d. and monitor for any recurrence After correction of hypokalemia and treatment of urinary tract infection. Future plans to consider sotalol and EP study for radiofrequency ablation. Regarding type [address]-elevation myocardial infarction in this patient with likely obstructive coronary artery disease with a strong family history of Early myocardial infarction, continue aspirin clopidogrel IV heparin metoprolol and atorvastatin. Referred to Dr. Todd for cardiac catheterization and possible revascularization. Risks benefits alternatives fully explained and verbalized understanding. Regarding hypokalemia and hypomagnesemia, keep potassium more than 4 and magnesium more than 2. Follow-up results of aldosterone and renin. Start [id number] mg daily. Give IV magnesium Vitals/Labs Vital Signs Date Time Temp Pulse Resp B/P (MAP) Pulse Ox O2 Delivery O2 Flow Rate FiO2 04/14/25 07:38 98.8 67 20 119/74 96 Room Air 04/13/25 20:00 0 21 Laboratory Tests 04/13/25 21:30 04/14/25 04:07 MIKAELA OSBORNE MD Apr 14, 2025 08:03
[2025-04-14] MEDS: SPIRONOLACTONE 25 MG TAB PO SCH (09:40)
--- NOTE | 2025-04-14 10:43 | PN ---
MEDICAL MANAGEMENT FOLLOWUP NOTE SUBJECTIVE: The patient is seen and examined at bedside today. No fever or chills. No sore throat. No rhinorrhea. No bleeding tendencies. No depression. No suicidal ideation. Denies rashes or itchiness. No palpitations. No orthopnea. Chest pain has resolved. The patient remained on heparin drip . The patient has been seen by Cardiology. PHYSICAL EXAMINATION: VITAL SIGNS: Temperature today is 98.7. EYES: No icterus. Pupils equal and reactive. HENT: No oral thrush seen. Moist oral mucosa. NECK: Supple. No JVD or thyromegaly. LUNGS: Good air entry. No rales. No rhonchi. CARDIOVASCULAR SYSTEM: S1 and S2 regular. No murmur heard. ABDOMEN: Full, soft, nontender, obese. No organomegaly. CENTRAL NERVOUS SYSTEM: Awake, alert, oriented x 3. No focal deficits. SKIN: No rashes, no itchiness. LYMPHATIC: No peripheral lymphadenopathy. BACK: No deformity. No pressure ulcer. MUSCULOSKELETAL: No joint swelling, erythema or tenderness. LABS: Potassium 2.8. Urine culture, Gram-negative. Chest x-ray unremarkable. ASSESSMENT: A 49-year-old female without chest pain and palpitations. Current problems include: * NSTEMI. * SVT. * UTI. * Diabetes mellitus. * Obesity. * Chronic nicotine use. PLAN: * Monitor electrolytes and correct as needed. * Continue heparin drip. * Continue . * Continue . * Continue . * Follow up closely . * Continue nutritional support. TID: [id number] RECEIPT: [id number]
--- NOTE | 2025-04-14 14:26 | PN ---
INFECTIOUS DISEASE PROGRESS NOTE Date of Service: Apr 14, 2025 SUBJECTIVE: [ ] PHYSICAL EXAM EYES: Anicteric. Pupils equal and reactive. HENT: No oral thrush seen, moist Oral mucosa NECK: Supple, no JVD or thyromegaly. LUNGS: Good air entry. No rales, no rhonchi. CARDIOVASCULAR: S1, S2 regular. No murmur heard. ABDOMEN: Soft, non tender, bowel sounds present, no organomegaly CENTRAL NERVOUS SYSTEM: Awake, alert, oriented x 3. No focal deficits. SKIN: No rashes, no swelling. LYMPHATICS: No peripheral lymphadenopathy MUSCULOSKELETAL: No joint swelling, erythema or tenderness. EXTREMITIES: No cyanosis or clubbing BACK: No deformity, no pressure ulcer. GENITOURINARY: No dysuria or hematuria Vital Sign (Last 12 Hours) 04/14/25 04/14/25 04/14/25 04:00 07:38 11:33 Temp 98.1 98.8 98.6 Pulse 76 67 70 Resp 20 20 20 B/P (MAP) 132/87 119/74 132/84 Pulse Ox 95 96 99 O2 Delivery Room Air Room Air Room Air Intake & Output (last 24hrs) 04/13/25 04/13/25 04/14/25 15:00 23:00 07:00 Intake Total 69.0 ml 405.0 ml Output Total 300 ml 200 ml Balance -231.0 ml 205.0 ml LABS: Laboratory: Test 04/14/25 11:02 04/14/25 04:07 04/14/25 01:03 04/13/25 15:57 Range/Units Whole Blood Glucose 132 H 70-110 MG/DL White Blood Count 10.3 4.8-10.8 K/uL Red Blood Count 4.08 4.00-5.50 MIL/uL Hemoglobin 12.0 12.0-16.0 g/dL Hematocrit 35.1 L 36-48 % Mean Corpuscular Volume 86.0 79-99 fL Mean Corpuscular Hemoglobin 29.4 27.0-33.0 pg Mean Corpuscular Hemoglobin Concent 34.2 32.0-36.0 g/dL Red Cell Distribution Width 13.7 11.0-15.5 % Platelet Count 292 130-400 K/uL Mean Platelet Volume 10.6 H 7.5-10.5 fL Nucleated Red Blood Cells 0.0 0.0-0.19 % Sodium Level 139 136-145 mmol/L Potassium Level 3.6 3.5-5.1 mmol/L Chloride Level 106 101-111 mmol/L Carbon Dioxide Level 27 21-32 mmol/L Blood Urea Nitrogen 9 7-18 mg/dL Creatinine 0.4 L 0.5-1.0 mg/dL Glomerular Filtration Rate Calc 121 >90 mL/min Random Glucose 112 H 70-105 mg/dL Total Calcium 8.2 L 8.5-10.1 mg/dL Magnesium Level 1.70 L 1.80-2.40 mg/dL Activated Partial Thromboplast Time 54.6 H 26.3-35.5 SEC Bedside Glucose Comment Notified Nurse Test 04/13/25 13:25 04/13/25 10:39 04/13/25 04:45 04/12/25 20:02 Range/Units Troponin I High Sensitivity 1156 *H 4-50 ng/L Prothrombin Time 18.9 #H 9.6-11.6 SEC Prothromb Time International Ratio 1.90 H 0.85-1.15 Immature Granulocyte % (Auto) 0.4 0-1 % Neutrophils (%) (Auto) 63.1 40.0-77.0 % Lymphocytes (%) (Auto) 28.9 21.0-51.0 % Monocytes (%) (Auto) 6.6 3.0-13.0 % Eosinophils (%) (Auto) 0.7 0.0-8.0 % Basophils (%) (Auto) 0.3 0.0-5.0 % Neutrophils # (Auto) 8.5 H 1.8-7.7 K/uL Lymphocytes # (Auto) 3.9 1.0-4.8 K/uL Monocytes # (Auto) 0.9 0.1-1.0 K/uL Eosinophils # (Auto) 0.09 0.00-0.70 K/uL Basophils # (Auto) 0.04 0.00-0.20 K/uL Absolute Immature Granulocyte (auto 0.05 0-1 K/uL Triglycerides Level 84 30-200 mg/dL Cholesterol Level 162 <200 mg/dL LDL Cholesterol 97 0-99 mg/dL HDL Cholesterol 47 35-85 mg/dL Urine Color LIGHT-YELLOW YELLOW Urine Appearance CLOUDY H CLEAR Urine pH 7.0 5.0-8.0 Urine Specific [place] 1.007 1.001-1.031 Urine Protein 30 H NEGATIVE mg/dL Urine Glucose (UA) 200 H NEGATIVE mg/dL Urine Ketones NEGATIVE NEGATIVE mg/dL Urine Occult Blood +- (TRACE) H NEGATIVE Urine Nitrate NEGATIVE NEGATIVE Urine Bilirubin NEGATIVE NEGATIVE mg/dL Urine Urobilinogen 0.2 0.2-1.0 mg/dL Urine Leukocyte Esterase NEGATIVE NEGATIVE Dim[place]/uL Urine RBC 2-5 H 0-1 /HPF Urine WBC 6-10 H 0-1 /HPF Urine Squamous Epithelial Cells FEW 0-2 /HPF Urine Bacteria MOD None Seen /HPF Test 04/12/25 18:46 Range/Units Hemoglobin A1c 6.5 H 4.0-6.0 % Estimated Average Glucose (eAG) 140 H 70-126 mg/dL Total Creatine Kinase 99 21-232 U/L Thyroid Stimulating Hormone (TSH) 6.32 H 0.36-3.74 uIU/mL Free Thyroxine (T4) Direct 1.07 0.76-1.46 ng/dL Free Triiodothyronine (T3) pg/mL 2.85 2.18-3.98 pg/mL DIAGNOSTICS / RADIOLOGY: PATIENT: JANELLE DURAN ACCT: [id number] LOC: [facility] U: [id number] AGE/SX: 49/F ROOM: 220 RE04/12/[address]: EVER ANN MD : 1975 BED: 1 DIS: STATUS: ADM IN TLOC: SPEC: [id number] TRAN: 04/12/25 STATUS: COMP REQ: [id number] RECD: 04/13/[address]: FREDY CHARLES MD SOURCE: [facility] [place] 04[place]/25 [facility] DR: MONICO HERMAN MD SPDESC: CLEAN CAT MARI PAGE MD ORDERED: AERO ID & SENS Procedure Result Malachi Date-Time AEROBIC ID & SENSITIVITIES Final 04/14/25-728 MRL COLONY DESCRIPTION: DAY 1: COLONY COUNT: >100,000 CFU/ML GRAM NEGATIVE RODS IDENTIFICATION AND SENSITIVITY TO FOLLOW KLEBSIELLA PNEUMONIAE K PNEUMO M.I.C. RX --------- ---- AZTREONAM <=4 S CEFAZOLIN <=2 S CEFTAZIDIME/AVIBACTAM <=8 S GENTAMICIN <=2 S LEVOFLOXACIN <=0.5 S NITROFURANTOIN >64 R MEROPENEM <=1 S PIPERACILLIN/TAZOBACTAM <=8 S TRIMETHOPRIM/SUFLAMETHOXAZOLE <=2/38 S ASSESSMENT: Urinary tract infection with Klebsiella pneumoniae. Non-STEMI. SVT. Diabetes mellitus. Chronic tobacco use. PLAN: Start patient on Ceftriaxone 2 g IV daily. Cardiology has evaluated patient and scheduled for a left heart catheterization for tomorrow. Continue heparin drip. Continue pain management. Continue antidiabetics. This case was reviewed and discussed with my supervising physician Dr. Ann and the above assessment and plan was formulated and agreed upon. ATTESTATION BY PHYSICIAN I have seen and examined the patient. I reviewed the documentation, medical decision making, and treatment plan as noted by the mid-level provider above. I agree with the findings and plan of care. EVER ANN MD, MIRTA L [facility] Apr 14, 2025 14:26
[2025-04-14] MEDS: 0.9%NACL 1000ML 1,000 ML IV SCH (14:38)
[2025-04-15] VITALS (12 sets, daily range): BP systolic 119–142; BP diastolic 72–93; PULSE 60–78; RESP 16–20; TEMP 97.2–98.5; O2SAT 95
[2025-04-15 04:35] LABS: NUCLEATED RED BLOOD CELLS 0.0 % (0.0-0.19); PLATELET COUNT (AUTO) 304.0 K/uL (130-400); RED BLOOD CELL COUNT(AUTO) 4.16 MIL/uL (4.00-5.50); RED CELL DISTRIBUTION WIDTH 13.4 % (11.0-15.5); WHITE BLOOD COUNT (AUTO) 11.1 K/uL (4.8-10.8)
[2025-04-15 04:49] LABS: INR 0.99 (0.85-1.15)
[2025-04-15 05:09] LABS: CREATININE 0.5 mg/dL (0.5-1.0); GLOMERULAR FILTR. RATE CALC 115.0 mL/min (>90); GLUCOSE,RANDOM 127.0 mg/dL (70-105); SODIUM SERUM 135.0 mmol/L (136-145); UREA NITROGEN, BLOOD 8.0 mg/dL (7-18)
--- NOTE | 2025-04-15 07:54 | PN ---
Cardiology follow-up Date of service: April 15, 2025 Interval History of present illness 49-year-old female with no prior coronary artery disease but with diabetes hypertension dyslipidemia obesity and smoking. She was admitted because of symptomatic paroxysmal supraventricular tachycardia converted to sinus rhythm with intravenous Cardizem Incidentally found to have type non STEMI with markedly elevated troponin of more than 2000. PENDING CARDIAC CATHETERIZATION THIS MORNING. She was chest pain-free overnight. No recurrent dysrhythmias seen on telemetry IV magnesium was not given by the nurse as verbally ordered Physical examination Overweight female in no acute distress Bennett palpebral conjunctivae anicteric sclerae Supple neck no JVD no bruit Symmetrical chest expansion no retractions clear breath sounds Regular rate and rhythm normal S1 and S2 2/6 mitral regurgitation murmur Abdomen soft nontender no hepatosplenomegaly Extremities: Trace pedal edema mildly diminished distal pulses bilaterally Skin: No rashes Neuro exam: Awake alert oriented x3, no motor or sensory deficits Diagnosis: 1. Symptomatic paroxysmal supraventricular tachycardia converted with IV Cardizem 2. Type [address]-elevation myocardial infarction 3. Suspected obstructive coronary artery disease 4. Strong family history of early myocardial infarction 5. Diabetes, A1c 6.5 6. Chronic hypertension 7. Dyslipidemia 8. Hypokalemia admission 2.8 Recommendations: Supplement magnesium and potassium the patient sees aggressively to keep magnesium more than 2 and potassium more than 4. Follow-up results of cardiac catheterization. If normal or mild stenosis not needed intervention, patient can be discharged from the cardiac standpoint and follow up with Dr. Osborne in 1 week Regarding the supraventricular tachycardia, continue oral metoprolol 25 mg p.o. b.i.d. and monitor for any recurrence After correction of hypokalemia and treatment of urinary tract infection. Future plans to consider sotalol and EP study for radiofrequency ablation. Regarding type [address]-elevation myocardial infarction in this patient with likely obstructive coronary artery disease with a strong family history of Early myocardial infarction, continue aspirin clopidogrel IV heparin metoprolol and atorvastatin. Regarding hypokalemia and hypomagnesemia, Follow-up results of aldosterone and renin. Continue [id number] mg daily. Give IV magnesium Vitals/Labs Vital Signs Date Time Temp Pulse Resp B/P (MAP) Pulse Ox O2 Delivery O2 Flow Rate FiO2 04/15/25 07:15 95 Room Air* 0 21 04/15/25 03:10 98.4 72 18 140/79 Laboratory Tests 04/15/25 04:25 MIKAELA OSBORNE MD Apr 15, 2025 07:54
--- NOTE | 2025-04-15 07:54 | NUR ---
dr elizabeth scott. made aware of potassium and magnesium replaced and recheck orders entered.
[2025-04-15] MEDS ORDERED: HEParin-NS 1,000 UNIT/500 ML 1,000 ML IV ONE (09:00)
[2025-04-15] MEDS ORDERED: LIDOCAINE HCL 400MG/20ML VIAL ONE (09:00)
[2025-04-15] MEDS ORDERED: IOHEXOL 350 MG/ML 100ML INFUS..BTL IV ONE (09:00)
[2025-04-15] MEDS ORDERED: NITROGLYCERIN 50MG VIAL ONE (09:01)
[2025-04-15] MEDS ORDERED: VERAPAMIL HCL 2.5 MG/ML VIAL ONE (09:03)
--- NOTE | 2025-04-15 09:12 | NUR ---
PT TRANSFERED TO CARDIOVASCULAR TECHNICIAN. LAB REVEIWED BY CARDIOVASCULAR TECHNICIAN NURSE.
[2025-04-15] MEDS ORDERED: MIDAZOLAM HCL 1 MG/ML 2ML VIAL ONE (09:28)
[2025-04-15] MEDS ORDERED: IOHEXOL-350 50ML VIAL IV ONE (10:01)
--- NOTE | 2025-04-15 11:07 | PN ---
CARDIOLOGY PROGRESS REPORT PRIMARY CAR REPAIR SUPERVISOR: _DR. OSBORNE___. SUBJECTIVE: This 49-year-old lady came to the emergency room on 04/12/2025 complaining of chest discomfort radiating to the neck and jaw in addition to palpitations and tachycardia. On admission, her blood pressure was 79/54, heart rate 190. Her electrocardiogram showed supraventricular tachycardia at 193 beats per minute. The patient required intravenous Cardizem to return to normal sinus rhythm. Once she returned to normal sinus rhythm, there were no significant ST changes. Her troponins were elevated with first troponin 724, second troponin 1156, third troponin 2332. She was hypokalemic and hypomagnesemic, both of which have been replaced. An echocardiogram was done showing ejection fraction 60-65%. No significant valvular heart disease. Past medical history includes diabetes, hypertension, and hypercholesterolemia. ALLERGIES: None MEDICATIONS: As listed. PHYSICAL EXAMINATION: GENERAL: The patient is a well-developed, well-nourished lady in no acute distress. VITAL SIGNS: Blood pressure 132/84, heart rate 70. Cardiac catheterization with risks, benefits, pros and cons was discussed. Right radial artery access versus right common femoral artery access were discussed. Questions were answered for the patient and her family. The patient has consented for the procedure. PLAN: Proceed with angiography and intervention if needed starting from the right radial artery. TID: [id number] RECEIPT: [id number] MTDYaakov
--- NOTE | 2025-04-15 11:50 | CCATH ---
PROCEDURE PERFORMED: Left heart catheterization, left and right coronary arteriography, left ventricular angiography. PRIMARY TUBE MILL OPERATOR: Dr. Pope. INDICATIONS: This 49-year-old lady presented with chest and neck discomfort in addition to supraventricular tachycardia. Her troponins were elevated. She was diagnosed as having a non-ST elevation [place]. TECHNIQUE: After informed consent and premedication, the patient was brought to the Cardiac Catheterization Laboratory where the right radial artery was accessed utilizing the ultrasound-guided micropuncture technique. A 6-Ecuadorean TIG catheter and a pigtail catheter were used. COMPLICATIONS: None. FINDINGS: Left main: The left main is normal. LAD: The LAD has mild disease in its mid portion. The apical segment of the LAD contains a 50-60% stenosis. Circumflex: The large dominant circumflex and obtuse marginal branches have 0% stenosis. The posterior descending artery has 0% stenosis. Right coronary artery: The small nondominant right coronary artery has 0% stenosis. LEFT VENTRICULAR ANGIOGRAPHY: The resting left ventricular end diastolic pressure is 14 mmHg. The ejection fraction is 60%-65%. There is no aortic stenosis and no obvious mitral regurgitation. The arteriotomy was closed with a TR band. MEDICATIONS: The patient received a total of 2 mg Versed, 50 mcg fentanyl IV. She received two radial artery cocktails, the first just after sheath insertion and the second just before sheath removal. IMPRESSION: This patient does have mild coronary artery disease involving the LAD. No intervention is needed. PLAN: Risk factor modification to include aspirin, statin, and diabetes control. She can be evaluated and treated for the SVT. TID: [id number] RECEIPT: [id number]
[2025-04-15] MEDS: 0.9%NACL 1000ML 1,000 ML IV SCH (13:25)
--- NOTE | 2025-04-15 14:59 | DS ---
Discharge Summary Hospital Course FINAL DISCHARGE DIAGNOSIS: Urinary tract infection with Klebsiella pneumoniae. Non-STEMI, status post left heart catheterization with mild coronary artery disease involving the LAD. SVT. Diabetes mellitus. Chronic tobacco use. PLAN Discharge patient to home today. Refer to new prescription for Vantin x5 days. Follow up with animal cruelty investigator as instructed. This case was reviewed and discussed with my supervising physician Dr. Grubbs and the above assessment and plan was formulated and agreed upon. ATTESTATION BY PHYSICIAN I have seen and examined the patient. I reviewed the documentation, medical decision making, and treatment plan as noted by the mid-level provider above. I agree with the findings and plan of care. EVER GRUBBS MD, MIRTA L [facility] Apr 15, 2025 14:59
--- NOTE | 2025-04-15 15:51 | NUR ---
PT DISCHARGED HOME WITH PILLOW, BLANKET AND MAKE UP BAG. FAMILY PICKED UP HER OTHER BELONGINGS. PT WHEELED TO VESSEL TRAFFIC OFFICER BY EMP STUDENT BECAUSE SHE WANTS NOTES FROM MEDICAL RECORDS BY DR. OSBORNE.
--- NOTE | 2025-04-15 20:31 | PN ---
Endocrinology Date of service: April 15, 2025 subjective: s/p cardiac angiography She was given aspirin and started on IV heparin. TSH 6.3, T 4 Free 1.07 and T 3 Free 2.85, HBA1C 6.5% denies taking any levothyroxine meds. glucose are improving and on SSI. home regimen: pioglitazone 15 mg daily and ozempic 2 mg weekly. Past Medical History Past Medical History: Diabetes-Type II, High Cholesterol, Hypertension, Prior history of tachycardia with emergency room visits last 3 years ago unknown details Surgical History: Cholecystectomy, x3, back surgery Family History: Multiple family members having myocardial infarction less than 55 years old Social History: Smokers (Vaping) Patient History: Carcinomas MOTHER Diabetes mellitus MOTHER FATHER Hypertension FATHER Review of System Dictation Constitutional: Negative for fever,chills, and weight loss Eyes: Negative for injury, pain,redness, and discharge ENT: Negative for injury,pain or swelling Cardiovascular: Positive for chest pain, palpitations, and denied edema Respiratory: Negative for shortness of breath, cough, and wheezing, Abdomen/GI: Negative for abdominal pain, nausea, + vomiting, no diarrhea, and constipation Back: Negative for injury and pain : Positive for dysuria and foul-smelling urine MS/Extremity: Negative for injury and deformity Skin: Negative for rash, and discoloration Neuro: Negative for headache, weakness, numbness, tingling, and seizure Psych: Negative for suicide ideation, homicidal ideation, and hallucinations assessment: 1. subclinical hypothyroidism TSH 6.3, T 4 Free 1.07 and T 3 Free 2.85, denies taking any levothyroxine meds. 2. Symptomatic paroxysmal supraventricular tachycardia converted with IV Cardizem 3. Type [address]-elevation myocardial infarction HBA1C 6.5%, home regimen: pioglitazone 15 mg daily and ozempic 2 mg weekly. glucose are improving and on SSI. 4. Suspected obstructive coronary artery disease 5. hypertension 6. Dyslipidemia Recommendations: repeat thyroid labs in 1 month. if persistent high TSH, then will start low dose levothyroxine. educated on hypothyroidism. continue medium dose ssi. monitor glucose qx6 hourly. Vitals/Labs Vital Signs Date Time Temp Pulse Resp B/P (MAP) Pulse Ox O2 Delivery O2 Flow Rate FiO2 04/15/25 14:45 78 119/75 98 Room Air 04/15/25 11:29 97.2 20 9/24/25 07:15 0 21 Laboratory Tests 04/15/25 04:25 04/15/25 11:40 Medications Current Medications Sodium Chloride 1,000 ml @ 0 mls/hr ONCE ONCE IV Last administered on 04/12/25at 19:09; Start 04/12/25 at 19:00; Stop 04/12/25 at 19:01; Status DC Metoprolol Tartrate 5 mg ONCE ONCE IV; Start 04/12/25 at 19:00; Stop 04/12/25 at 19:01; Status DC Metoprolol Tartrate 5 mg STK-MED ONCE IV; Start 04/12/25 at 18:47; Stop 04/12/25 at 18:47; Status DC Metoprolol Tartrate 5 mg ONCE ONCE IV; Start 04/12/25 at 19:00; Stop 04/12/25 at 18:54; Status DC Metoprolol Tartrate 5 mg STK-MED ONCE IV; Start 04/12/25 at 18:51; Stop 04/12/25 at 18:52; Status DC Diltiazem HCl 25 mg STK-MED ONCE IVP; Start 04/12/25 at 19:08; Stop 04/12/25 at 19:08; Status DC Diltiazem HCl 10 mg ONCE ONCE IVP Last administered on 04/12/25at 19:38; Start 04/12/25 at 19:10; Stop 04/12/25 at 19:16; Status DC Potassium Bicarbonate 50 meq ONCE ONCE PO Last administered on 04/12/25at 20:21; Start 04/12/25 at 20:30; Stop 04/12/25 at 20:31; Status DC Magnesium Sulfate 50 ml @ 0 mls/hr PROTOCOL IV Last administered on 04/15/25at 05:24; Start 04/12/25 at 20:30; Stop 04/15/25 at 15:53; Status DC Ceftriaxone Sodium 1 gm ONCE ONCE IVPB Last administered on 04/12/25at 22:27; Start 04/12/25 at 21:00; Stop 04/12/25 at 21:01; Status DC Insulin Human Lispro BIDAC PRN SQ; Start 04/12/25 at 21:30; Stop 04/13/25 at 05:11; Status DC Metoprolol Tartrate 25 mg BID PO Last administered on 04/15/25at 07:32; Start 04/13/25 at 09:00; Stop 04/15/25 at 15:53; Status DC Acetaminophen 650 mg Q6H PRN PO; Start 04/12/25 at 21:30; Stop 04/15/25 at 15:53; Status DC Ondansetron HCl 4 mg Q6H PRN IVP; Start 04/12/25 at 21:30; Stop 04/15/25 at 15:53; Status DC Heparin Sodium (Porcine) *calculation based on ACTUAL B... AD PRN IV Last administered on 04/12/25at 23:22; Start 04/12/25 at 23:30; Stop 04/15/25 at 11:14; Status DC Heparin Sodium/ Dextrose 250 ml @ 0 mls/hr Q6H IV Last administered on 04/14/25at 19:37; Start 04/12/25 at 23:30; Stop 04/15/25 at 11:14; Status DC Aspirin 81 mg DAILY PO Last administered on 04/15/25at 07:32; Start 04/13/25 at 09:00; Stop 04/15/25 at 15:53; Status DC Potassium Chloride 100 ml @ 100 mls/hr AD PRN IV Last administered on 04/13/25at 06:20; Start 04/13/25 at 06:30; Stop 04/15/25 at 15:53; Status DC Potassium Chloride 20 meq AD PRN PO; Start 04/13/25 at 06:30; Stop 04/15/25 at 15:53; Status DC Potassium Chloride 20 meq AD PRN PO Last administered on 04/15/25at 07:33; Start 04/13/25 at 06:30; Stop 04/15/25 at 15:53; Status DC Clopidogrel Bisulfate 300 mg ONCE ONCE PO Last administered on 04/13/25at 06:58; Start 04/13/25 at 07:00; Stop 04/13/25 at 07:01; Status DC Clopidogrel Bisulfate 75 mg DAILY PO Last administered on 04/15/25at 07:33; Start 04/13/25 at 07:00; Stop 04/15/25 at 15:53; Status DC Clopidogrel Bisulfate 300 mg STK-MED ONCE .ROUTE; Start 04/13/25 at 06:56; Stop 04/13/25 at 06:56; Status DC Aspirin 81 mg STK-MED ONCE .ROUTE; Start 04/13/25 at 06:57; Stop 04/13/25 at 06:57; Status DC Insulin Human Lispro INSULIN SLIDING SCAL... ACHS SQ; Start 04/13/25 at 07:30; Stop 04/15/25 at 15:53; Status DC Spironolactone 25 mg DAILY PO Last administered on 04/15/25at 07:35; Start 04/14/25 at 09:00; Stop 04/15/25 at 15:53; Status DC Atorvastatin Calcium 20 mg HS PO Last administered on 04/14/25at 20:37; Start 04/14/25 at 21:00; Stop 04/15/25 at 15:53; Status DC Diphenhydramine HCl 25 mg ONCE PRN IVP Last administered on 04/15/25at 09:04; Start 04/14/25 at 13:30; Stop 04/15/25 at 09:07; Status DC Sodium Chloride 1,000 ml @ 100 mls/hr Q10H IV Last administered on 04/15/25at 03:14; Start 04/14/25 at 13:30; Stop 04/15/25 at 15:53; Status DC Ceftriaxone Sodium 2 gm Q24H IVPB Last administered on 04/15/25at 13:30; Start 04/14/25 at 14:30; Stop 04/15/25 at 15:53; Status DC Lidocaine HCl 20 ml STK-MED ONCE .ROUTE; Start 04/15/25 at 09:00; Stop 04/15/25 at 09:00; Status DC Iohexol 35,000 mg STK-MED ONCE IV; Start 04/15/25 at 09:00; Stop 04/15/25 at 09:01; Status DC Heparin Sodium (Porcine) 10,000 unit STK-MED ONCE .ROUTE; Start 04/15/25 at 09:00; Stop 04/15/25 at 09:01; Status DC Heparin Sodium/ Sodium Chloride 1,000 ml @ As Directed STK-MED ONCE IV; Start 04/15/25 at 09:00; Stop 04/15/25 at 09:01; Status DC Nitroglycerin 50 mg STK-MED ONCE .ROUTE; Start 04/15/25 at 09:01; Stop 04/15/25 at 09:01; Status DC Verapamil HCl 5 mg STK-MED ONCE .ROUTE; Start 04/15/25 at 09:03; Stop 04/15/25 at 09:03; Status DC Nicardipine HCl 25 mg STK-MED ONCE IV; Start 04/15/25 at 09:06; Stop 04/15/25 at 09:06; Status DC Fentanyl Citrate 100 mcg STK-MED ONCE .ROUTE; Start 04/15/25 at 09:28; Stop 04/15/25 at 09:28; Status DC Midazolam HCl 2 mg STK-MED ONCE .ROUTE; Start 04/15/25 at 09:28; Stop 04/15/25 at 09:28; Status DC Iohexol 50 ml STK-MED ONCE IV; Start 04/15/25 at 10:01; Stop 04/15/25 at 10:01; Status DC Sodium Chloride 1,000 ml @ 100 mls/hr Q10H IV Last administered on 04/15/25at 13:25; Start 04/15/25 at 11:00; Stop 04/15/25 at 14:59; Status DC ZOE WING MD Apr 15, 2025 20:31
== END 2025-04-15 15:45 | disposition home or self-care (01) | DRG 281 ==
LOC: EDH 18:36 → EDHIP 21:03 → 2DH 04-13 12:42
PROVIDERS: ADMIT Internal Medicine Infectious Disease; ATTEND Internal Medicine Infectious Disease
PROC: 4A023N7 Measurement of Cardiac Sampling and Pressure, Left Heart, Percutaneous Approach (ICD-10-PCS; principal; 2025-04-15)
PROC: B2111ZZ Fluoroscopy of Multiple Coronary Arteries using Low Osmolar Contrast (ICD-10-PCS; 2025-04-15)
PROC: B2151ZZ Fluoroscopy of Left Heart using Low Osmolar Contrast (ICD-10-PCS; 2025-04-15)
DX: I47.10 Supraventricular tachycardia, unspecified (principal); N39.0 Urinary tract infection, site not specified; I21.A1 Myocardial infarction type 2; I25.10 Atherosclerotic heart disease of native coronary artery without angina pectoris; E66.9 Obesity, unspecified; E87.6 Hypokalemia; F17.290 Nicotine dependence, other tobacco product, uncomplicated; Z79.84 Long term (current) use of oral hypoglycemic drugs; I10 Essential (primary) hypertension; E03.8 Other specified hypothyroidism; B96.1 Klebsiella pneumoniae [K. pneumoniae] as the cause of diseases classified elsewhere; E78.00 Pure hypercholesterolemia, unspecified; E83.42 Hypomagnesemia; Z82.41 Family history of sudden cardiac death; Z82.49 Family history of ischemic heart disease and other diseases of the circulatory system; Z83.3 Family history of diabetes mellitus; Z79.899 Other long term (current) drug therapy; Z68.34 Body mass index [BMI] 34.0-34.9, adult; Z90.49 Acquired absence of other specified parts of digestive tract
CPT/HCPCS: 36415; 71045; 76376; 80048; 80061; 81001; 82088; 82550; 82948; 83036; 83735; 84132; 84244; 84439; 84443; 84481; 84484; 85025; 85027; 85610; 85730; 87086; 87186; 93005; 93306; 93356; 93458; 96361; 96374; 99156; 99157; 99291; C1769; C1894; G0378; J0696; J1200; J1644; J2250; J3010; J3475; J3480; J3490; J7030; Q9967; A4649; Q9965